=== PATIENT | female | born 1995 | race Caucasian/White ===

== ENCOUNTER 2021-04-30 11:40 | Emergency (ER) | payer OTHER ==
[~2021-04-30] VITALS: Ht 160 cm; Wt 65.0 kg
[2021-04-30 14:07] LABS: BASOPHILS % 1.1 % (0.0-2.0); EOSINOPHILS % 0.7 % (0.0-5.0); HEMATOCRIT. 39.4 % (36.0-48.0); LYMPHOCYTES % 34.9 % (20.0-50.0); MEAN CORPUSCULAR HEMOGLOBIN 27.6 pg (28.0-32.0); MEAN CORPUSCULAR VOLUME 83.8 fL (81.0-99.0); MEAN PLATELET VOLUME 9.9 fl (7.4-10.4); MONOCYTES % 8.5 % (2.0-8.0); NEUTROPHILS % 54.8 % (40.0-76.0); PLATELET 152 x1000/uL (130-400); RED CELL DISTRIBUTION WIDTH 12.8 % (11.6-14.6)
[2021-04-30 14:11] LABS: CHLORIDE 108 mEq/L (98-107)
[2021-04-30 14:14] LABS: PROTHROMBIN TIME 11.2 sec (9.6-11.0)
[2021-04-30 14:48] LABS: ETHANOL BLOOD < 10 mg/dL
[2021-04-30 15:20] LABS: CLARITY URINE CLEAR (CLEAR); COLOR URINE YELLOW (YELLOW); KETONES URINE NEGATIVE (NEGATIVE); LEUKOCYTE ESTERASE URINE NEGATIVE (NEGATIVE); NITRITE URINE NEGATIVE (NEGATIVE); OCCULT BLOOD URINE NEGATIVE (NEGATIVE); PROTEIN URINE NEGATIVE (NEGATIVE); SPECIFIC GRAVITY URINE 1.021 (1.005-1.030); UROBILINOGEN URINE 0.2 E.U./dL (0.2-1.0)
[2021-04-30 16:05] LABS: *AMPHETAMINES SCREEN URINE NEGATIVE (NEGATIVE); *BARBITURATES SCREEN URINE NEGATIVE (NEGATIVE); *BENZODIAZEPINES SCREEN URINE NEGATIVE (NEGATIVE); *COCAINE SCREEN URINE NEGATIVE (NEGATIVE); CANNABINOID URINE SCREEN NEGATIVE (NEGATIVE); METHADONE URINE SCREEN NEGATIVE (NEGATIVE)
[2021-04-30 16:06] LABS: OPIATES URINE SCREEN NEGATIVE (NEGATIVE); PHENCYCLIDINE URINE SCREEN NEGATIVE (NEGATIVE)
[2021-04-30 16:55] VITALS: BP 91/58
== END 2021-04-30 17:08 | disposition home or self-care (01) ==
LOC: ER 11:40
DX: Z00.00 Encounter for general adult medical examination without abnormal findings (principal); I49.8 Other specified cardiac arrhythmias; Z98.84 Bariatric surgery status
CPT/HCPCS: 36415; 71045; 80053; 80305; 80320; 81003; 83880; 84484; 85025; 93005; 99285; G0480